=== PATIENT | female | born 1940 | race Caucasian/White ===

== ENCOUNTER 2017-03-24 14:18 | Emergency (ER) | payer MEDICARE, MEDICAID ==
[~2017-03-24] VITALS: Ht 152.4 cm; Wt 65.3 kg
[2017-03-24] MEDS ORDERED: CLON0.5T4 PO (14:33)
[2017-03-24] MEDS ORDERED: OLME40TA3 PO (14:33)
[2017-03-24] MEDS ORDERED: CARV3.122 PO (14:33)
[2017-03-24] MEDS ORDERED: ESCI10TA55 PO (14:33)
[2017-03-24] MEDS ORDERED: MECL-102 PO (14:33)
[2017-03-24] MEDS ORDERED: ASPI81TA31 PO (14:33)
[2017-03-24] MEDS ORDERED: SITA1TBM7 PO (14:33)
[2017-03-24] MEDS ORDERED: ROSU10TA PO (14:33)
--- NOTE | 2017-03-24 14:46 | NUR ---
PT IS IN ROOM #1A. DR WRIGHT EVALUATED THE PT.
[2017-03-24] MEDS ORDERED: ETOMIDATE 20 MG/10 ML VIAL IV ONE (15:15)
[2017-03-24] MEDS ORDERED: ETOMIDATE 20 MG/10 ML VIAL ONE (15:48)
--- NOTE | 2017-03-24 17:32 | NUR ---
PT WAS D/C TO HOME. D/C INSTRUCTIONS GIVEN TO THE PT AND TO HER RELATIVES. PT DENIES PAIN. NO SOB. NO N/V. GAIT IS STABLE.
[2017-03-24 17:34] VITALS: BP 136/79
== END 2017-03-24 17:34 | disposition home or self-care (01) ==
LOC: ER 14:20
DX: S53.125A Posterior dislocation of left ulnohumeral joint, initial encounter (principal); I10 Essential (primary) hypertension; E78.5 Hyperlipidemia, unspecified; F32.9 Major depressive disorder, single episode, unspecified; K21.9 Gastro-esophageal reflux disease without esophagitis; F41.9 Anxiety disorder, unspecified; Z88.1 Allergy status to other antibiotic agents; Z79.82 Long term (current) use of aspirin; W18.30XA Fall on same level, unspecified, initial encounter; Y93.89 Activity, other specified; Y99.8 Other external cause status; Y92.89 Other specified places as the place of occurrence of the external cause
CPT/HCPCS: 24600; 73070; 73080; 99152; 99285; A4663; J3490

== ENCOUNTER 2021-06-16 09:37 | Emergency (ER) | payer MEDICARE, OTHER ==
[~2021-06-16] VITALS: Ht 152.4 cm; Wt 66.2 kg
[~2021-06-16 09:37] MED LIST: ASPI81TA31 PO; CARV3.122 PO; CLON0.5T4 PO; ESCI-9 PO; MECL-159 PO; OLME40TA12 PO; ROSU10TA2 PO; SITA1TBM7 PO
--- NOTE | 2021-06-16 10:05 | NUR ---
PT IS IN ROOM #2B. DR GAXILOA EVALUATED THE PT.
[2021-06-16] MEDS ORDERED: ACETAMINOPHEN ES 500 MG TABLET PO ONE (10:15)
[2021-06-16] MEDS ORDERED: ACETAMINOPHEN ES 500 MG TABLET ONE (10:41)
[2021-06-16] MEDS ORDERED: ONDANSETRON 4 MG/2 ML VIAL IV ONE (10:45)
[2021-06-16] MEDS ORDERED: MORPHINE SULFATE 2 MG/1 ML DISP.SYRIN IV ONE (10:45)
[2021-06-16] MEDS ORDERED: ONDANSETRON 4 MG/2 ML VIAL ONE (11:11)
[2021-06-16] MEDS ORDERED: MORPHINE SULFATE 2 MG/1 ML DISP.SYRIN ONE (11:11)
[2021-06-16] MEDS ORDERED: PROPOFOL 200 MG/20 ML BOTTLE ONE (11:47)
--- NOTE | 2021-06-16 12:53 | NUR ---
CLOSED REDUCTION OF THE LEFT ELBOW WITH MODERATE SEDATION WAS PERFORMED BY DR GAXIOLA (SEE MODERATE SEDATION REPORT). PT TOLERATED TO PROCEDURE WITHOUT COMPLICATIONS. PT WAS D/C'd TO HOME. D/C INSTRUCTIONS GIVEN TO THE PT by DR GAXIOLA. GAIT IS STABLE. NO S/S OF DISTRESS AT THE TIME OF DISCHARGE.
[2021-06-16] MEDS ORDERED: PROPOFOL 200 MG/20 ML BOTTLE IV ONE (13:00)
[2021-06-16] MEDS ORDERED: IV NORMAL SALINE 1000 ML BAG IV ONE (13:00)
[2021-06-16 13:37] VITALS: BP 132/68
== END 2021-06-16 13:40 | disposition home or self-care (01) ==
LOC: ER 09:37
DX: M24.422 Recurrent dislocation, left elbow (principal); K21.9 Gastro-esophageal reflux disease without esophagitis; E78.5 Hyperlipidemia, unspecified; F41.9 Anxiety disorder, unspecified; F32.9 Major depressive disorder, single episode, unspecified; Z79.899 Other long term (current) drug therapy; Z90.49 Acquired absence of other specified parts of digestive tract; R03.0 Elevated blood-pressure reading, without diagnosis of hypertension
CPT/HCPCS: 24600; 73080 ×2; 96374; 96375; 99152; 99285; J2270; J2405; A4663; A9150; G0500; J3490; J7030